=== PATIENT | male | born 1965 | race African-American/Black ===

== ENCOUNTER 2017-08-26 01:42 | Emergency (ER) | payer MEDICAID ==
[~2017-08-26] VITALS: Ht 180.3 cm; Wt 94.0 kg
[2017-08-26 01:44] VITALS: BP 126/68
== END 2017-08-26 02:51 | disposition home or self-care (01) ==
LOC: ER 01:42
DX: Z00.00 Encounter for general adult medical examination without abnormal findings (principal); R03.0 Elevated blood-pressure reading, without diagnosis of hypertension; F91.8 Other conduct disorders; Z89.511 Acquired absence of right leg below knee; F17.210 Nicotine dependence, cigarettes, uncomplicated
CPT/HCPCS: 99283

== ENCOUNTER 2017-08-26 09:59 | Emergency (ER) | payer MEDICAID ==
[~2017-08-26] VITALS: Ht 185.4 cm; Wt 140.0 kg
[2017-08-26] MEDS ORDERED: SODIUM CHLORIDE 0.9% 1,000 ML IV ONE ×2 (10:34→13:33)
[2017-08-26] MEDS ORDERED: LORAZEPAM 2MG/ML CPJ IV ONE ×2 (10:45→13:15)
[2017-08-26 11:00] LABS: BASOPHILS % 0.6 % (0.0-2.0); EOSINOPHILS % 0.1 % (0.0-5.0); HEMATOCRIT. 34.9 % (42.0-52.0); HEMOGLOBIN. 11.8 g/dL (14.0-18.0); LYMPHOCYTES % 14.1 % (20.0-50.0); MEAN CORPUSCULAR HEMOGLOBIN 25.4 pg (28.0-32.0); MEAN CORPUSCULAR VOLUME 75.3 fL (80.0-94.0); MEAN PLATELET VOLUME 8.5 fl (7.4-10.4); MONOCYTES % 7.8 % (2.0-8.0); NEUTROPHILS % 77.4 % (40.0-76.0); PLATELET 341 x1000/uL (130-400); RED BLOOD CELL COUNT 4.63 mill/uL (4.7-6.1); RED CELL DISTRIBUTION WIDTH 18.3 % (11.6-14.6)
[2017-08-26 11:08] LABS: CARBON DIOXIDE 18 mEq/L (21-32); CHLORIDE 108 mEq/L (98-107); ETHANOL BLOOD < 10 mg/dL
[2017-08-26] MEDS ORDERED: HALOPERIDOL LACTATE 5MG/ML VIAL IM ONE ×2 (11:30→11:34)
[2017-08-26 12:40] LABS: CREATINE KINASE 4140 IU/L (39-308)
[2017-08-26] MEDS ORDERED: LORAZEPAM 2MG/ML CPJ ONE (13:07)
[2017-08-26 15:41] LABS: *AMPHETAMINES SCREEN URINE NEGATIVE (NEGATIVE); *BARBITURATES SCREEN URINE NEGATIVE (NEGATIVE); *BENZODIAZEPINES SCREEN URINE PRESUMTIVE POSITIVE (NEGATIVE); *COCAINE SCREEN URINE NEGATIVE (NEGATIVE); CANNABINOID URINE SCREEN PRESUMTIVE POSITIVE (NEGATIVE); METHADONE URINE SCREEN NEGATIVE (NEGATIVE); OPIATES URINE SCREEN NEGATIVE (NEGATIVE); PHENCYCLIDINE URINE SCREEN NEGATIVE (NEGATIVE)
[2017-08-26 15:52] LABS: CREATINE KINASE 3562 IU/L (39-308)
[2017-08-27] MEDS ORDERED: OLANZAPINE 10 MG/VIAL IM ONE (05:15)
[2017-08-27] MEDS ORDERED: LORAZEPAM 2MG/ML CPJ IV ONE ×2 (06:30→07:15)
[2017-08-27] MEDS ORDERED: AMLODIPINE 10MG TABLET PO ONE (17:45)
[2017-08-28] MEDS ORDERED: SODIUM CHLORIDE 0.9% 1000ML BAG (SEPSIS BOLUS) IV NR (04:15)
[2017-08-28 07:17] LABS: CREATINE KINASE 2331 IU/L (39-308)
[2017-08-28 09:53] VITALS: BP 150/90
== END 2017-08-28 09:57 | disposition home or self-care (01) ==
LOC: ER 10:09
DX: R45.1 Restlessness and agitation (principal); F91.8 Other conduct disorders; M62.82 Rhabdomyolysis; D50.9 Iron deficiency anemia, unspecified; F60.3 Borderline personality disorder; F32.9 Major depressive disorder, single episode, unspecified; R00.0 Tachycardia, unspecified; I10 Essential (primary) hypertension; F12.10 Cannabis abuse, uncomplicated; G82.20 Paraplegia, unspecified; E11.9 Type 2 diabetes mellitus without complications; Z89.519 Acquired absence of unspecified leg below knee; Z78.1 Physical restraint status
CPT/HCPCS: 36415; 80048; 80305; 80307; 80329; 82550; 83605; 85025; 87040; 87086; 96361; 96372; 96374; 96376; 99285; G0482; J1630; J2060; J3490; Z7610; J7030

== ENCOUNTER 2017-10-22 20:05 | Emergency (ER) | payer MEDICAID ==
[~2017-10-22] VITALS: Ht 172.7 cm; Wt 102.0 kg
[2017-10-22 20:18] VITALS: BP 164/99
== END 2017-10-23 02:22 | disposition left against medical advice (07) ==
LOC: ER 21:01
DX: Z53.21 Procedure and treatment not carried out due to patient leaving prior to being seen by health care provider (principal)

== ENCOUNTER 2017-10-23 03:46 | Emergency (ER) | payer MEDICAID ==
[~2017-10-23] VITALS: Ht 170.2 cm; Wt 101.0 kg
[2017-10-23 04:22] VITALS: BP 138/80
== END 2017-10-23 04:54 | disposition left against medical advice (07) ==
LOC: ER 03:54
DX: T83.038A Leakage of other urinary catheter, initial encounter (principal); Y73.8 Miscellaneous gastroenterology and urology devices associated with adverse incidents, not elsewhere classified; Y92.098 Other place in other non-institutional residence as the place of occurrence of the external cause; I10 Essential (primary) hypertension; F91.8 Other conduct disorders; Z89.511 Acquired absence of right leg below knee; Z89.432 Acquired absence of left foot
CPT/HCPCS: 99283; Z7610

== ENCOUNTER 2017-10-24 13:42 | Emergency (ER) | payer MEDICAID ==
[~2017-10-24] VITALS: Ht 180.3 cm; Wt 140.0 kg
[2017-10-24 13:44] VITALS: BP 130/80
== END 2017-10-24 18:55 | disposition home or self-care (01) ==
LOC: ER 13:55
DX: T83.89XA Other specified complication of genitourinary prosthetic devices, implants and grafts, initial encounter (principal); I10 Essential (primary) hypertension
CPT/HCPCS: 51702; 99284

== ENCOUNTER 2018-02-23 15:18 | Emergency (ER) | payer MEDICAID, OTHER ==
[~2018-02-23] VITALS: Ht 195.6 cm; Wt 150.0 kg
[2018-02-23 15:28] VITALS: BP 125/74
== END 2018-02-23 16:00 | disposition home or self-care (01) ==
LOC: ER 15:40
DX: T83.031A Leakage of indwelling urethral catheter, initial encounter (principal); I10 Essential (primary) hypertension; Z98.890 Other specified postprocedural states; Y92.89 Other specified places as the place of occurrence of the external cause
CPT/HCPCS: 99284

== ENCOUNTER 2021-09-09 04:13 | Emergency (ER) | payer MEDICAID, OTHER ==
[~2021-09-09] VITALS: Ht 172.7 cm; Wt 114.0 kg
[2021-09-09] MEDS ORDERED: SODIUM CHLORIDE 0.9% 1000ML BAG (SEPSIS BOLUS) IV ONE (05:45)
[2021-09-09] MEDS ORDERED: VANCOMYCIN 1 G PREMIX 200 ML IV ONE (05:45)
[2021-09-09] MEDS ORDERED: PIPERACILLIN/TAZ 3.375G PREMIX 50 ML IV ONE (05:45)
[2021-09-09 06:23] LABS: BASOPHILS % 1.2 % (0.0-2.0); EOSINOPHILS % 0.5 % (0.0-5.0); HEMATOCRIT. 38.2 % (42.0-52.0); HEMOGLOBIN. 12.6 g/dL (14.0-18.0); LYMPHOCYTES % 31.8 % (20.0-50.0); MEAN CORPUSCULAR HEMOGLOBIN 25.5 pg (28.0-32.0); MEAN CORPUSCULAR VOLUME 77.1 fL (80.0-94.0); MEAN PLATELET VOLUME 8.9 fl (7.4-10.4); MONOCYTES % 6.7 % (2.0-8.0); NEUTROPHILS % 59.8 % (40.0-76.0); PLATELET 334 x1000/uL (130-400); RED BLOOD CELL COUNT 4.96 mill/uL (4.7-6.1)
[2021-09-09 06:30] LABS: CHLORIDE 102 mEq/L (98-107)
[2021-09-09 06:51] VITALS: BP 138/74
[2021-09-09 07:09] LABS: CLARITY URINE CLEAR (CLEAR); COLOR URINE YELLOW (YELLOW); KETONES URINE NEGATIVE (NEGATIVE); LEUKOCYTE ESTERASE URINE 1+ (NEGATIVE); NITRITE URINE NEGATIVE (NEGATIVE); OCCULT BLOOD URINE NEGATIVE (NEGATIVE); PROTEIN URINE 1+ (NEGATIVE); SPECIFIC GRAVITY URINE 1.013 (1.005-1.030)
== END 2021-09-09 11:40 | disposition left against medical advice (07) ==
LOC: ER 04:13 → ENRESERV 12:32 → CANRESERV 12:32 → ENRESERV 12:40 → CANRESERV 12:40 → CANBEDREQ 13:30
DX: L89.311 Pressure ulcer of right buttock, stage 1 (principal); N39.0 Urinary tract infection, site not specified; I49.9 Cardiac arrhythmia, unspecified; Z20.822 Contact with and (suspected) exposure to COVID-19
CPT/HCPCS: 36415; 71045; 80053; 81003; 82962; 83605; 83880; 84145; 84484; 85025; 87040; 87086; 87426; 93005; 96365; 96368; 99285; J2543; J3370; J7030

== ENCOUNTER 2021-11-29 19:09 | Emergency (ER) | payer MEDICAID | END 2021-11-29 20:47 | disposition left against medical advice (07) | LOC: ER 19:09 | DX: Z53.21 Procedure and treatment not carried out due to patient leaving prior to being seen by health care provider (principal) ==

== ENCOUNTER 2021-12-26 05:34 | Emergency (ER) | payer BC, MEDICAID ==
[~2021-12-26] VITALS: Ht 182.9 cm; Wt 118.0 kg
[2021-12-26 08:16] LABS: CLARITY URINE CLEAR (CLEAR); COLOR URINE YELLOW (YELLOW); KETONES URINE NEGATIVE (NEGATIVE); LEUKOCYTE ESTERASE URINE 1+ (NEGATIVE); NITRITE URINE NEGATIVE (NEGATIVE); OCCULT BLOOD URINE TRACE (NEGATIVE); PH URINE 5.5 (4.5-8.0); PROTEIN URINE 1+ (NEGATIVE); SPECIFIC GRAVITY URINE 1.015 (1.005-1.030); UROBILINOGEN URINE 0.2 E.U./dL (0.2-1.0)
[2021-12-26 08:22] LABS: BASOPHILS % 0.6 % (0.0-2.0); EOSINOPHILS % 0.4 % (0.0-5.0); HEMATOCRIT. 38.6 % (42.0-52.0); HEMOGLOBIN. 13.2 g/dL (14.0-18.0); LYMPHOCYTES % 21.7 % (20.0-50.0); MEAN CORPUSCULAR HEMOGLOBIN 25.8 pg (28.0-32.0); MEAN CORPUSCULAR VOLUME 75.4 fL (80.0-94.0); MEAN PLATELET VOLUME 8.6 fl (7.4-10.4); MONOCYTES % 8.2 % (2.0-8.0); NEUTROPHILS % 69.1 % (40.0-76.0); PLATELET 303 x1000/uL (130-400); RED BLOOD CELL COUNT 5.11 mill/uL (4.7-6.1); RED CELL DISTRIBUTION WIDTH 17.5 % (11.6-14.6)
[2021-12-26 08:32] LABS: CHLORIDE 108 mEq/L (98-107)
[2021-12-26] MEDS ORDERED: ACETAMINOPHEN 325MG TABLET PO ONE (09:00)
[2021-12-26] MEDS ORDERED: LEVO750T46 PO (11:00)
[2021-12-26 11:30] VITALS: BP 148/88
== END 2021-12-26 11:40 | disposition home or self-care (01) ==
LOC: ER 05:34
DX: T83.098A Other mechanical complication of other urinary catheter, initial encounter (principal); N39.0 Urinary tract infection, site not specified; I10 Essential (primary) hypertension; E78.00 Pure hypercholesterolemia, unspecified; F12.10 Cannabis abuse, uncomplicated; F14.10 Cocaine abuse, uncomplicated; Z89.511 Acquired absence of right leg below knee; Z59.00 Homelessness unspecified; Z88.6 Allergy status to analgesic agent; Y84.6 Urinary catheterization as the cause of abnormal reaction of the patient, or of later complication, without mention of misadventure at the time of the procedure; Y92.89 Other specified places as the place of occurrence of the external cause
CPT/HCPCS: 36415; 80053; 81003; 85025; 99285; A4315

== ENCOUNTER 2022-01-09 20:52 | Emergency (ER) | payer BC ==
[~2022-01-09] VITALS: Ht 167.6 cm; Wt 72.0 kg
[~2022-01-09 20:52] MED LIST: LEVO750T46 PO
[2022-01-10] VITALS: BP 165/74
[2022-01-10 01:11] LABS: BASOPHILS % 0.6 % (0.0-2.0); EOSINOPHILS % 0.4 % (0.0-5.0); HEMATOCRIT. 36.2 % (42.0-52.0); HEMOGLOBIN. 12.3 g/dL (14.0-18.0); LYMPHOCYTES % 34.6 % (20.0-50.0); MEAN CORPUSCULAR HEMOGLOBIN 25.3 pg (28.0-32.0); MEAN CORPUSCULAR VOLUME 74.6 fL (80.0-94.0); MEAN PLATELET VOLUME 7.8 fl (7.4-10.4); MONOCYTES % 10.3 % (2.0-8.0); NEUTROPHILS % 54.1 % (40.0-76.0); PLATELET 368 x1000/uL (130-400); RED BLOOD CELL COUNT 4.86 mill/uL (4.7-6.1); RED CELL DISTRIBUTION WIDTH 17.4 % (11.6-14.6)
[2022-01-10 01:18] LABS: CHLORIDE 106 mEq/L (98-107)
== END 2022-01-10 05:45 | disposition home or self-care (01) ==
LOC: ER 20:52
DX: T83.091A Other mechanical complication of indwelling urethral catheter, initial encounter (principal); X58.XXXA Exposure to other specified factors, initial encounter; E11.9 Type 2 diabetes mellitus without complications; I10 Essential (primary) hypertension; F12.10 Cannabis abuse, uncomplicated; Z88.6 Allergy status to analgesic agent
CPT/HCPCS: 36415; 80053; 83880; 85025; 99283; A4315

== ENCOUNTER 2022-02-19 05:53 | Emergency (ER) | payer MEDICAID ==
[~2022-02-19] VITALS: Ht 177.8 cm; Wt 82.0 kg
[~2022-02-19 05:53] MED LIST changes: +NITR-87 MT
[2022-02-19 08:10] VITALS: BP 171/63
[2022-02-19 09:30] LABS: BASOPHILS % 0.6 % (0.0-2.0); EOSINOPHILS % 1.6 % (0.0-5.0); HEMATOCRIT. 40.7 % (42.0-52.0); HEMOGLOBIN. 12.9 g/dL (14.0-18.0); LYMPHOCYTES % 31.7 % (20.0-50.0); MEAN CORPUSCULAR HEMOGLOBIN 24.3 pg (28.0-32.0); MEAN CORPUSCULAR VOLUME 76.9 fL (80.0-94.0); MEAN PLATELET VOLUME 8.2 fl (7.4-10.4); MONOCYTES % 7.9 % (2.0-8.0); NEUTROPHILS % 58.2 % (40.0-76.0); PLATELET 395 x1000/uL (130-400); RED CELL DISTRIBUTION WIDTH 17.9 % (11.6-14.6)
[2022-02-19 09:33] LABS: CHLORIDE 108 mEq/L (98-107)
== END 2022-02-19 08:42 | disposition home or self-care (01) ==
LOC: ER 05:53
DX: R33.9 Retention of urine, unspecified (principal); F12.10 Cannabis abuse, uncomplicated; E11.9 Type 2 diabetes mellitus without complications; I10 Essential (primary) hypertension; Z88.6 Allergy status to analgesic agent
CPT/HCPCS: 36415; 80048; 85025; 99283; Z7610

== ENCOUNTER 2022-02-28 12:24 | Emergency (ER) | payer MEDICAID ==
[~2022-02-28] VITALS: Ht 177.8 cm; Wt 109.0 kg
[2022-02-28] MEDS ORDERED: SODIUM CHLORIDE 0.9% 1,000 ML IV ONE (13:15)
[2022-02-28 15:01] LABS: BASOPHILS % 0.8 % (0.0-2.0); EOSINOPHILS % 3.4 % (0.0-5.0); HEMOGLOBIN. 10.1 g/dL (14.0-18.0); LYMPHOCYTES % 32.7 % (20.0-50.0); MEAN CORPUSCULAR HEMOGLOBIN 24.1 pg (28.0-32.0); MEAN CORPUSCULAR VOLUME 73.9 fL (80.0-94.0); MONOCYTES % 9.8 % (2.0-8.0); NEUTROPHILS % 53.3 % (40.0-76.0); PLATELET 314 x1000/uL (130-400); RED CELL DISTRIBUTION WIDTH 17.9 % (11.6-14.6)
[2022-02-28 15:02] LABS: CLARITY URINE CLOUDY (CLEAR); COLOR URINE YELLOW (YELLOW); KETONES URINE NEGATIVE (NEGATIVE); LEUKOCYTE ESTERASE URINE 3+ (NEGATIVE); NITRITE URINE NEGATIVE (NEGATIVE); OCCULT BLOOD URINE 2+ (NEGATIVE); PROTEIN URINE 1+ (NEGATIVE)
[2022-02-28 15:13] LABS: CHLORIDE 106 mEq/L (98-107)
[2022-02-28 15:19] LABS: ETHANOL BLOOD < 10 mg/dL
[2022-02-28 15:24] LABS: *AMPHETAMINES SCREEN URINE NEGATIVE (NEGATIVE); *BARBITURATES SCREEN URINE NEGATIVE (NEGATIVE); *BENZODIAZEPINES SCREEN URINE NEGATIVE (NEGATIVE); *COCAINE SCREEN URINE PRESUMTIVE POSITIVE (NEGATIVE); CANNABINOID URINE SCREEN PRESUMTIVE POSITIVE (NEGATIVE); METHADONE URINE SCREEN NEGATIVE (NEGATIVE); OPIATES URINE SCREEN NEGATIVE (NEGATIVE); PHENCYCLIDINE URINE SCREEN NEGATIVE (NEGATIVE)
[2022-02-28] MEDS ORDERED: CEFTRIAXONE SODIUM 1 G/VIAL IM NR (15:45)
[2022-02-28] MEDS ORDERED: POTASSIUM CHLORIDE 20MEQ TABLET SR PO NR (15:45)
[2022-02-28] MEDS ORDERED: CEPH500C2 MT (17:03)
[2022-02-28 23:00] VITALS: BP 160/65
== END 2022-02-28 23:20 | disposition home or self-care (01) ==
LOC: ER 13:03
DX: E78.6 Lipoprotein deficiency (principal); N39.0 Urinary tract infection, site not specified; F19.10 Other psychoactive substance abuse, uncomplicated
CPT/HCPCS: 36415; 80053; 80305; 80320; 81003; 85025; 87077; 87086; 87186; 93005; 96372; 99284; J0696; J7030; Z7610; G0480

== ENCOUNTER 2022-04-22 07:45 | Emergency (ER) | payer MEDICAID ==
[~2022-04-22] VITALS: Ht 177.8 cm; Wt 100.0 kg
[~2022-04-22 07:45] MED LIST changes: +CEPH500C2 MT
[2022-04-22 10:23] LABS: BASOPHILS % 0.5 % (0.0-2.0); EOSINOPHILS % 0.7 % (0.0-5.0); LYMPHOCYTES % 25.2 % (20.0-50.0); MEAN CORPUSCULAR HEMOGLOBIN 23.3 pg (28.0-32.0); MEAN CORPUSCULAR VOLUME 71.8 fL (80.0-94.0); MEAN PLATELET VOLUME 8.1 fl (7.4-10.4); MONOCYTES % 9.5 % (2.0-8.0); NEUTROPHILS % 64.1 % (40.0-76.0); PLATELET 412 x1000/uL (130-400); RED BLOOD CELL COUNT 4.73 mill/uL (4.7-6.1); RED CELL DISTRIBUTION WIDTH 19.9 % (11.6-14.6)
[2022-04-22 10:35] LABS: CHLORIDE 103 mEq/L (98-107)
[2022-04-22 11:56] LABS: CLARITY URINE TURBID (CLEAR); COLOR URINE YELLOW (YELLOW); KETONES URINE NEGATIVE (NEGATIVE); LEUKOCYTE ESTERASE URINE 3+ (NEGATIVE); NITRITE URINE NEGATIVE (NEGATIVE); OCCULT BLOOD URINE 1+ (NEGATIVE); PH URINE 6.5 (4.5-8.0); PROTEIN URINE 2+ (NEGATIVE); SPECIFIC GRAVITY URINE 1.013 (1.005-1.030); UROBILINOGEN URINE 0.2 E.U./dL (0.2-1.0)
[2022-04-22] MEDS ORDERED: CEFTRIAXONE 1 G PREMIX 50 ML IV ONE (12:00)
[2022-04-22 17:50] VITALS: BP 142/61
== END 2022-04-22 18:05 | disposition left against medical advice (07) ==
LOC: ER 07:55 → CMPBEDREQ 22:42
DX: T83.038A Leakage of other urinary catheter, initial encounter (principal); L97.118 Non-pressure chronic ulcer of right thigh with other specified severity; N30.00 Acute cystitis without hematuria; E11.9 Type 2 diabetes mellitus without complications; I10 Essential (primary) hypertension; Z89.9 Acquired absence of limb, unspecified; Z88.6 Allergy status to analgesic agent; Y84.6 Urinary catheterization as the cause of abnormal reaction of the patient, or of later complication, without mention of misadventure at the time of the procedure; Y92.89 Other specified places as the place of occurrence of the external cause
CPT/HCPCS: 36415; 80053; 81003; 83605; 85025; 87040; 87077; 87086; 87186; 96365; 99284; J0696

== ENCOUNTER 2022-06-09 05:17 | Emergency (ER) | payer MEDICAID ==
[~2022-06-09] VITALS: Ht 172.7 cm; Wt 91.0 kg
[2022-06-09 05:19] VITALS: BP 138/68
== END 2022-06-09 07:20 | disposition home or self-care (01) ==
LOC: ER 05:17
DX: T85.628A Displacement of other specified internal prosthetic devices, implants and grafts, initial encounter (principal); F15.10 Other stimulant abuse, uncomplicated
CPT/HCPCS: 51702; 99284; Z7610; A4315

== ENCOUNTER 2022-07-25 12:26 | Emergency (ER) | payer MEDICAID ==
[~2022-07-25] VITALS: Ht 195.6 cm; Wt 100.0 kg
[2022-07-25] MEDS ORDERED: HYDROCODONE/ACETAMINOPHEN 5/325MG TABLET PO NR (15:15)
[2022-07-25 17:46] LABS: BASOPHILS % 0.5 % (0.0-2.0); EOSINOPHILS % 1.3 % (0.0-5.0); HEMATOCRIT. 36.2 % (42.0-52.0); LYMPHOCYTES % 27.2 % (20.0-50.0); MEAN CORPUSCULAR HEMOGLOBIN 24.4 pg (28.0-32.0); MEAN CORPUSCULAR VOLUME 73.6 fL (80.0-94.0); PLATELET 418 x1000/uL (130-400); RED BLOOD CELL COUNT 4.92 mill/uL (4.7-6.1); RED CELL DISTRIBUTION WIDTH 19.9 % (11.6-14.6)
[2022-07-25 18:17] LABS: CHLORIDE 96 mEq/L (98-107); ETHANOL BLOOD < 10 mg/dL
[2022-07-25 20:16] LABS: CLARITY URINE TURBID (CLEAR); COLOR URINE ORANGE (YELLOW); KETONES URINE TRACE (NEGATIVE); LEUKOCYTE ESTERASE URINE 3+ (NEGATIVE); NITRITE URINE NEGATIVE (NEGATIVE); OCCULT BLOOD URINE 3+ (NEGATIVE); PROTEIN URINE 2+ (NEGATIVE); SPECIFIC GRAVITY URINE 1.015 (1.005-1.030)
[2022-07-25 20:35] LABS: *AMPHETAMINES SCREEN URINE NEGATIVE (NEGATIVE); *BARBITURATES SCREEN URINE NEGATIVE (NEGATIVE); *BENZODIAZEPINES SCREEN URINE NEGATIVE (NEGATIVE); *COCAINE SCREEN URINE PRESUMTIVE POSITIVE (NEGATIVE); CANNABINOID URINE SCREEN PRESUMTIVE POSITIVE (NEGATIVE); METHADONE URINE SCREEN NEGATIVE (NEGATIVE); OPIATES URINE SCREEN PRESUMTIVE POSITIVE (NEGATIVE); PHENCYCLIDINE URINE SCREEN NEGATIVE (NEGATIVE)
[2022-07-26] MEDS ORDERED: NITROFURANTOIN 100MG M/M CAPSULE PO NR
[2022-07-26 06:00] VITALS: BP 109/69
== END 2022-07-26 10:05 | disposition home or self-care (01) ==
LOC: ER 12:26
DX: F32.89 Other specified depressive episodes (principal); R45.851 Suicidal ideations; F12.10 Cannabis abuse, uncomplicated; F14.10 Cocaine abuse, uncomplicated; F11.10 Opioid abuse, uncomplicated; E87.6 Hypokalemia; L89.159 Pressure ulcer of sacral region, unspecified stage; E11.622 Type 2 diabetes mellitus with other skin ulcer; I10 Essential (primary) hypertension; Z20.822 Contact with and (suspected) exposure to COVID-19; Z89.9 Acquired absence of limb, unspecified; Z99.3 Dependence on wheelchair; Z88.6 Allergy status to analgesic agent
CPT/HCPCS: 36415; 80053; 80305; 80307; 80320; 80329; 81003; 85025; 87426; 99285; C9803; U0003; U0005; Z7610; G0480

== ENCOUNTER 2022-08-26 05:11 | Emergency (ER) | payer MEDICAID ==
[~2022-08-26] VITALS: Ht 193 cm; Wt 134.0 kg
[~2022-08-26 05:11] MED LIST changes: -LEVO750T46 PO; +LEVO750T68 PO
[2022-08-26 05:30] VITALS: BP 176/75
== END 2022-08-26 08:36 | disposition left against medical advice (07) ==
LOC: ER 05:11
DX: Z53.21 Procedure and treatment not carried out due to patient leaving prior to being seen by health care provider (principal)
CPT/HCPCS: 99281

== ENCOUNTER 2022-09-19 23:44 | Emergency (ER) | payer MEDICAID ==
[~2022-09-19] VITALS: Ht 195.6 cm; Wt 100.0 kg
[~2022-09-19 23:44] MED LIST changes: +CEPH500T PO; +SULF1TAB48 PO
[2022-09-20 00:14] VITALS: BP 143/78
== END 2022-09-20 02:33 | disposition home or self-care (01) ==
LOC: ER 23:44
DX: T83.098A Other mechanical complication of other urinary catheter, initial encounter (principal); I10 Essential (primary) hypertension; E11.9 Type 2 diabetes mellitus without complications; Z88.6 Allergy status to analgesic agent; Z89.431 Acquired absence of right foot; Z99.3 Dependence on wheelchair; Y84.6 Urinary catheterization as the cause of abnormal reaction of the patient, or of later complication, without mention of misadventure at the time of the procedure; Y92.488 Other paved roadways as the place of occurrence of the external cause
CPT/HCPCS: 51702; 99284; Z7610

== ENCOUNTER 2023-01-18 09:22 | Emergency (ER) | payer MEDICAID ==
[~2023-01-18] VITALS: Ht 177.8 cm; Wt 82.0 kg
[2023-01-18 09:30] VITALS: BP 152/86
[2023-01-18 10:36] LABS: BASOPHILS % 0.5 % (0.0-2.0); EOSINOPHILS % 2.8 % (0.0-5.0); HEMATOCRIT. 30.7 % (42.0-52.0); HEMOGLOBIN. 9.8 g/dL (14.0-18.0); LYMPHOCYTES % 46.4 % (20.0-50.0); MEAN CORPUSCULAR HEMOGLOBIN 22.5 pg (28.0-32.0); MEAN CORPUSCULAR VOLUME 70.4 fL (80.0-94.0); MEAN PLATELET VOLUME 6.5 fl (7.4-10.4); MONOCYTES % 8.4 % (2.0-8.0); NEUTROPHILS % 41.9 % (40.0-76.0); PLATELET 514 x1000/uL (130-400); RED BLOOD CELL COUNT 4.36 mill/uL (4.7-6.1); RED CELL DISTRIBUTION WIDTH 21.1 % (11.6-14.6)
[2023-01-18 10:44] LABS: CHLORIDE 107 mEq/L (98-107)
[2023-01-18 12:19] LABS: CLARITY URINE CLOUDY (CLEAR); COLOR URINE YELLOW (YELLOW); KETONES URINE NEGATIVE (NEGATIVE); LEUKOCYTE ESTERASE URINE 3+ (NEGATIVE); NITRITE URINE NEGATIVE (NEGATIVE); OCCULT BLOOD URINE 2+ (NEGATIVE); PH URINE 7.5 (4.5-8.0); PROTEIN URINE 1+ (NEGATIVE); SPECIFIC GRAVITY URINE 1.013 (1.005-1.030)
== END 2023-01-18 12:17 | disposition home or self-care (01) ==
LOC: ER 09:50
DX: T83.091A Other mechanical complication of indwelling urethral catheter, initial encounter (principal); I10 Essential (primary) hypertension; E11.9 Type 2 diabetes mellitus without complications
CPT/HCPCS: 36415; 51701; 80053; 81003; 85025; 87077; 87086; 87186; 99284; Z7610; 99283; A4315

== ENCOUNTER 2023-01-24 23:21 | Emergency (ER) | payer MEDICAID ==
[~2023-01-24] VITALS: Ht 182.9 cm; Wt 80.0 kg
[2023-01-24 23:25] VITALS: BP 138/82
== END 2023-01-25 03:07 | disposition left against medical advice (07) ==
LOC: ER 23:21
DX: Z88.6 Allergy status to analgesic agent (principal); I10 Essential (primary) hypertension; E11.9 Type 2 diabetes mellitus without complications; R10.9 Unspecified abdominal pain
CPT/HCPCS: 99283

== ENCOUNTER 2024-02-29 02:48 | Emergency (ER) | payer MEDICAID ==
[~2024-02-29] VITALS: Ht 188 cm; Wt 93.0 kg
[2024-02-29 03:01] VITALS: BP 175/72; PULSE 100; RESP 16; TEMP 98.1; O2SAT 99
== END 2024-02-29 07:25 | disposition home or self-care (01) ==
LOC: ER 04:51
DX: R33.9 Retention of urine, unspecified (principal); E11.9 Type 2 diabetes mellitus without complications; I10 Essential (primary) hypertension; F14.10 Cocaine abuse, uncomplicated
CPT/HCPCS: 99281

== ENCOUNTER 2024-03-02 01:50 | Emergency (ER) | payer MEDICAID ==
[~2024-03-02] VITALS: Ht 172.7 cm; Wt 80.0 kg
[2024-03-02 01:56] VITALS: BP 141/87; PULSE 92; RESP 20; TEMP 98.6; O2SAT 99
== END 2024-03-02 10:38 | disposition home or self-care (01) ==
LOC: ER 01:50
DX: R33.9 Retention of urine, unspecified (principal); E11.9 Type 2 diabetes mellitus without complications; I10 Essential (primary) hypertension; F14.10 Cocaine abuse, uncomplicated
CPT/HCPCS: 99283

== ENCOUNTER 2024-03-02 14:42 | Emergency (ER) | payer MEDICAID ==
[~2024-03-02] VITALS: Ht 182.9 cm; Wt 91.0 kg
[2024-03-02 14:43] VITALS: TEMP 98.3; O2SAT 100
[2024-03-02 15:00] VITALS: BP 156/89; PULSE 91; RESP 17
== END 2024-03-02 15:50 ==
LOC: ER 14:56
DX: R45.1 Restlessness and agitation (principal); E11.9 Type 2 diabetes mellitus without complications; I10 Essential (primary) hypertension; F14.10 Cocaine abuse, uncomplicated
CPT/HCPCS: 99283